=== PATIENT | male | born 1955 | race Caucasian/White ===

== ENCOUNTER → 2017-07-01 | Outpatient (CLI) | payer BC ==
[~2017-07-01] MED LIST: ACYC-50 PO; ADV100/50 INH; ADVAIR; ALB17R INH; ALLO-2 PO; AZIT-1 PO; BETA15CR36 TP; CALC-597 PO; CETI10CA8 PO; CYAN100017 PO; EZET10TA41 PO; FENO145T36 PO; FLU IM; HYDR-385 PO; KET10 PO; LESCOL; LOR5/325 PO; MELO-149 PO; MELO-150 PO; NAL50 PO; ONDA4TAB PO; RIS1 PO; SER50 PO; SERT-173 PO; ZOLOFT PO; ZOLP12.545 PO; [UNRECOGNIZED DRUG - CODE] PO; [UNRECOGNIZED DRUG - REMARK]
--- NOTE | 2017-07-01 09:35 | RADIOLOGY IMAGING REPORT ---
FACILITY: [facility] [place] PATIENT NAME: Abraham Miller : 1955 MR: [id number] V: [id number] EXAM DATE: ORDERING PHYSICIAN: UBALDO ULLOA TECHNOLOGIST: Location: [facility] [place] Patient: Abraham Miller : 1955 Visit/Account:[id number] Date of Sevice: 07/01/2017 KIDNEYS HISTORY: Renal insufficiency COMPARISON: None. FINDINGS: Right kidney- 9.9 x 5.8 x 6.2 cm, normal parenchymal thickness and echogenicity. No concerning masses . No calculi. No hydronephrosis. Normal vascularity. Left kidney- 10.3 x 5.9 x 5.7 cm, normal parenchymal thickness and echogenicity. No concerning marlo s. No calculi. No hydronephrosis. Normal vascularity. Bladder: Prevoid volume of 310 cc. Postvoid volume of 44 cc. Bilateral ureteral jets visualized.. Abdominal aorta and IVC: Patent by Doppler ultrasound. Other findings: None significant IMPRESSION: 1. Normal kidneys. 2. Post void residual volume within the urinary bladder measuring 44 cc. Report Dictated By: Rodney Garcia MD at 07/01/2017 9:28 AM Report E-Signed By: Rodney Garcia MD at 07/01/2017 9:29 AM WSN:[id number]
== END ==
LOC: US 02:15
PROVIDERS: ATTEND Internal Medicine Nephrology
DX: Z13.9 Encounter for screening, unspecified (principal); N28.9 Disorder of kidney and ureter, unspecified; R89.9 Unspecified abnormal finding in specimens from other organs, systems and tissues
CPT/HCPCS: 76705